=== PATIENT | male | born 1980 | race Caucasian/White ===

== ENCOUNTER 2021-12-28 13:19 | Emergency (ER) | payer MEDICARE, OTHER ==
[~2021-12-28] VITALS: Ht 180.3 cm; Wt 104.3 kg
--- NOTE | 2021-12-28 14:00 | NUR ---
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 THE PATIENT IS ALERT AND ORIENTED X4. IN ROOM AIR AND DENIES SOB. RESPIRATION REGULAR AND UNLABORED. WILL CONTINUE TO MONITOR THE PATIENT.
--- NOTE | 2021-12-28 14:22 | NUR ---
COVID SWAB COLLECTED AND SENT TO LAB
[2021-12-28] MEDS ORDERED: GUAI600T53 PO (15:00)
[2021-12-28 15:20] VITALS: BP 122/75
--- NOTE | 2021-12-28 15:20 | NUR ---
Patient discharged to home in stable condition. Written and verbal after care instructions given. Patient verbalizes understanding of instruction.
== END 2021-12-28 15:20 | disposition home or self-care (01) ==
LOC: ER 13:28
DX: J06.9 Acute upper respiratory infection, unspecified (principal); B97.89 Other viral agents as the cause of diseases classified elsewhere; M79.10 Myalgia, unspecified site; Z20.822 Contact with and (suspected) exposure to COVID-19; Z86.16 Personal history of COVID-19
CPT/HCPCS: 71045-TC; C9803

== ENCOUNTER 2024-09-02 13:37 | Emergency (ER) | payer MEDICARE, OTHER ==
[~2024-09-02] VITALS: Ht 180.3 cm; Wt 86.2 kg
[~2024-09-02 13:37] MED LIST: GUAI600T53 PO
[2024-09-02 13:50] VITALS: BP 130/84; TEMP 97.9; O2SAT 99
== END 2024-09-02 14:20 | disposition home or self-care (01) ==
LOC: ER 13:52
DX: F90.9 Attention-deficit hyperactivity disorder, unspecified type (principal); Z76.0 Encounter for issue of repeat prescription; Z86.16 Personal history of COVID-19

== ENCOUNTER 2025-04-11 17:53 | Emergency (ER) | payer MEDICARE, OTHER ==
[~2025-04-11] VITALS: Ht 180.3 cm; Wt 95.3 kg
[2025-04-11 18:10] VITALS: BP 162/79; TEMP 98.3; O2SAT 98
== END 2025-04-11 22:26 | disposition left against medical advice (07) ==
LOC: ER 18:00
DX: R51.9 Headache, unspecified (principal); F41.9 Anxiety disorder, unspecified